=== PATIENT | female | born 1955 | race Caucasian/White ===

== ENCOUNTER → 2018-02-27 | Outpatient (CLI) | payer BC | LOC: RAD 14:33 | DX: M77.31 Calcaneal spur, right foot (principal); R22.41 Localized swelling, mass and lump, right lower limb ==

== ENCOUNTER → 2020-11-04 | Outpatient (CLI) | payer BC | LOC: MAMMO 08:30 | DX: Z13.820 Encounter for screening for osteoporosis (principal); Z12.31 Encounter for screening mammogram for malignant neoplasm of breast; M85.80 Other specified disorders of bone density and structure, unspecified site ==

== ENCOUNTER 2021-06-23 08:55 | Emergency (ER) | payer BC ==
[2021-06-23] MEDS ORDERED: TELMISARTAN PO (09:02)
[2021-06-23] MEDS ORDERED: [UNRECOGNIZED DRUG - OTHER] PO (09:02)
[2021-06-23] MEDS ORDERED: AMLODIPINE BESYL5 MG PO (09:02)
[2021-06-23] MEDS ORDERED: CELEXA 20MG20 MG/TA1 PO (09:02)
[2021-06-23] MEDS ORDERED: PRAVASTATIN SOD20 MG PO (09:02)
[2021-06-23 09:45] LABS: BASO # 0.03 K/mm3 (0.02-0.10); EOS # 0.05 K/mm3 (0.04-0.40); EOS % 0.7 % (1.0-5.0); HEMOGLOBIN 16.1 g/dL (12.5-16.0); MEAN CELL VOLUME 92 fl (78-100); MEAN CORPUSCULAR HEMOGLOBIN 31 pg (27-31); MEAN CORPUSCULAR HGB CONC 34 g/dL (33-37); MEAN PLATELET VOLUME 10.6 fl (7.4-10.4); MONO # 0.49 K/mm3 (0.20-0.80); NEU # 5.59 K/mm3 (1.40-6.50); PLATELET COUNT 200 K/mm3 (130-400); RED BLOOD COUNT 5.22 M/mm3 (4.10-5.30); RED CELL DISTRIBUTION WIDTH 12.8 % (11.5-14.5); WHITE BLOOD COUNT 7.2 K/mm3 (4.8-10.8)
[2021-06-23 09:54] LABS: ALBUMIN 4.2 g/dL (3.4-4.8)
[2021-06-23 09:55] LABS: POTASSIUM 2.9 mmol/L (3.5-5.1)
[2021-06-23 09:56] LABS: CALCIUM 10.9 mg/dL (8.3-10.5)
[2021-06-23 09:57] LABS: TOTAL PROTEIN 7.3 g/dL (6.2-8.1)
[2021-06-23 09:59] LABS: TOTAL BILIRUBIN 0.4 mg/dL (0.2-1.2)
[2021-06-23 13:33] LABS: POTASSIUM 4.1 mmol/L (3.5-5.1)
[2021-06-23 13:34] LABS: CALCIUM 10.5 mg/dL (8.3-10.5)
[2021-06-23] MEDS ORDERED: ZOFRAN ODT4 MG PO (14:03)
[2021-06-23 14:26] VITALS: BP 170/87
== END 2021-06-23 14:11 | disposition home or self-care (01) ==
LOC: ED 08:55
PROVIDERS: Physician Assistant
DX: I10 Essential (primary) hypertension (principal); E87.6 Hypokalemia; F41.9 Anxiety disorder, unspecified; E78.5 Hyperlipidemia, unspecified; Z20.822 Contact with and (suspected) exposure to COVID-19; Z79.899 Other long term (current) drug therapy
CPT/HCPCS: J1885; J2405; J3480

== ENCOUNTER → 2021-07-01 | Outpatient (CLI) | payer BC ==
[~2021-07-01] MED LIST: AMLODIPINE BESYL5 MG PO; CELEXA 20MG20 MG/TA1 PO; POTASSIUM CHLO20 ME3 PO; PRAVASTATIN SOD20 MG PO; TELMISARTAN PO; ZOFRAN ODT4 MG PO; [UNRECOGNIZED DRUG - OTHER] PO
[2021-07-01 11:31] LABS: ALBUMIN 4.1 g/dL (3.4-4.8)
[2021-07-01 11:32] LABS: POTASSIUM 3.7 mmol/L (3.5-5.1)
[2021-07-01 11:33] LABS: CALCIUM 10.9 mg/dL (8.3-10.5)
[2021-07-01 11:34] LABS: TOTAL PROTEIN 7.3 g/dL (6.2-8.1)
[2021-07-01 11:36] LABS: TOTAL BILIRUBIN 0.9 mg/dL (0.2-1.2)
== END ==
LOC: LAB 11:08
PROVIDERS: Family Medicine
DX: E87.6 Hypokalemia (principal); E83.52 Hypercalcemia

== ENCOUNTER 2021-07-03 23:45 | Emergency (ER) | payer BC ==
[~2021-07-03] VITALS: Ht 154.9 cm; Wt 78.1 kg
[~2021-07-03 23:45] MED LIST changes: -POTASSIUM CHLO20 ME3 PO
[2021-07-04] MEDS ORDERED: POTASSIUM CHLO20 ME3 PO (00:03)
[2021-07-04 00:54] LABS: ALBUMIN 3.8 g/dL (3.4-4.8); BASO # 0.05 K/mm3 (0.02-0.10); EOS # 0.16 K/mm3 (0.04-0.40); EOS % 1.2 % (1.0-5.0); HEMOGLOBIN 14.9 g/dL (12.5-16.0); LYMPH# 1.49 K/mm3 (1.50-4.00); MEAN CELL VOLUME 92 fl (78-100); MEAN CORPUSCULAR HEMOGLOBIN 31 pg (27-31); MEAN CORPUSCULAR HGB CONC 34 g/dL (33-37); MEAN PLATELET VOLUME 11.4 fl (7.4-10.4); MONO # 0.89 K/mm3 (0.20-0.80); NEU # 11.12 K/mm3 (1.40-6.50); PLATELET COUNT 271 K/mm3 (130-400); RED BLOOD COUNT 4.79 M/mm3 (4.10-5.30); RED CELL DISTRIBUTION WIDTH 12.3 % (11.5-14.5); WHITE BLOOD COUNT 13.8 K/mm3 (4.8-10.8)
[2021-07-04 00:55] LABS: POTASSIUM 3.3 mmol/L (3.5-5.1)
[2021-07-04 00:56] LABS: CALCIUM 10.4 mg/dL (8.3-10.5)
[2021-07-04 00:57] LABS: TOTAL PROTEIN 6.7 g/dL (6.2-8.1)
[2021-07-04 00:59] LABS: TOTAL BILIRUBIN 0.6 mg/dL (0.2-1.2)
[2021-07-04 01:03] LABS: MAGNESIUM 2.09 mg/dL (1.60-2.60)
[2021-07-04 03:34] VITALS: BP 107/89
[2021-07-04 04:03] LABS: URINE APPEARANCE HAZY; URINE BILIRUBIN NEGATIVE (NEGATIVE); URINE BLOOD NEGATIVE (NEGATIVE); URINE COLOR YELLOW; URINE GLUCOSE NEGATIVE (NEGATIVE); URINE KETONE NEGATIVE (NEGATIVE); URINE LEUKOCYTE ESTERASE TRACE (NEGATIVE); URINE MUCUS PRESENT (NOT PRESENT); URINE NITRATE NEGATIVE (NEGATIVE); URINE PROTEIN(semi-quant) TRACE mg/dL (NEGATIVE); URINE UROBILINOGEN NORMAL (NORMAL)
== END 2021-07-04 03:40 | disposition short-term general hospital (02) ==
LOC: ED 23:45
PROVIDERS: Nurse Practitioner Family
DX: S06.6X0A Traumatic subarachnoid hemorrhage without loss of consciousness, initial encounter (principal); S99.921A Unspecified injury of right foot, initial encounter; I10 Essential (primary) hypertension; E87.6 Hypokalemia; E78.9 Disorder of lipoprotein metabolism, unspecified; G43.909 Migraine, unspecified, not intractable, without status migrainosus; Z79.899 Other long term (current) drug therapy
CPT/HCPCS: J1885; J2405; J3360; J7030; J7050